=== PATIENT | male | born 1990 | race Caucasian/White ===

== ENCOUNTER 2020-08-15 14:14 | Emergency (ER) | payer OTHER ==
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
[2020-08-15 16:16] VITALS: BP 133/78
== END 2020-08-15 16:17 | disposition home or self-care (01) ==
LOC: M ED 14:14
DX: S00.33XA Contusion of nose, initial encounter (principal); W22.8XXA Striking against or struck by other objects, initial encounter; Y92.009 Unspecified place in unspecified non-institutional (private) residence as the place of occurrence of the external cause; Y93.89 Activity, other specified; Y99.8 Other external cause status